=== PATIENT | female | born 1985 | race Caucasian/White ===

== ENCOUNTER → 2016-10-15 | Outpatient (CLI) | payer BC ==
[~2016-10-15] MED LIST: FOLIC ACID0.4 MG PO; IBU800 M1 PO; IRON1 CHI; MOTRIN 800800 MG/TAB PO; PERCOCET 325 MG1 TA2 PO; PRENATAL1 TA1 PO; SENOKOT S 50 MG1 TAB PO; TUCKS50% TOP; VITAMIN D1000 IU
== END ==
LOC: LAC 10:50
DX: Z39.1 Encounter for care and examination of lactating mother (principal); Z71.89 Other specified counseling

== ENCOUNTER → 2016-10-20 | Outpatient (CLI) | payer BC | LOC: MC.RAD 14:00 | DX: N63 Unspecified lump in breast (principal) ==

== ENCOUNTER → 2017-08-06 | Outpatient (CLI) | payer BC | LOC: MC.RAD 07:26 | DX: N63.21 Unspecified lump in the left breast, upper outer quadrant (principal) ==

== ENCOUNTER 2017-09-24 14:30 | Outpatient (RCR) | payer BC | END 2017-11-30 | disposition home or self-care (01) | LOC: MKS.ESL.PT | DX: M26.629 Arthralgia of temporomandibular joint, unspecified side (principal); R51 Headache; H93.11 Tinnitus, right ear; R20.0 Anesthesia of skin ==

== ENCOUNTER → 2017-12-09 | Outpatient (CLI) | payer BC | LOC: COL.RAD 08:05 | DX: M43.8X2 Other specified deforming dorsopathies, cervical region (principal); G43.709 Chronic migraine without aura, not intractable, without status migrainosus ==